=== PATIENT | female | born 1985 | race Two or more races ===

== ENCOUNTER 2024-03-17 15:10 | Observation (INO) | payer MEDICAID, SELFPAY ==
[2024-03-17 15:15] VITALS: BP 130/63; PULSE 95; RESP 16; RESP 96; TEMP 36.8; BMI 48.9
[2024-03-17 15:46] VITALS: BP 130/63; PULSE 95
--- NOTE | 2024-03-17 16:05 | XR_ITS ---
Examination: Complete OB ultrasound greater than 14 weeks Date and time of exam: March 17, 2024 1619 hours INDICATIONS: Vaginal bleeding beginning 2 days ago Findings: Viable intrauterine single fetus with single amniotic sac presentation cephalic Cardiac motion 137 BPM Placenta maternal right grade 3 Umbilical cord insertion 3 vessel seen Amniotic fluid index 14.8 cm Cervix ovaries obscured by bowel gas Composite estimated gestational age based on BPD, head circumference, abdominal circumference, femur length is 37 weeks 0 days Estimated weight 3118 g. Survey of intracranial anatomy, spinal anatomy, abdominal anatomy, four-chamber heart performed with no abnormalities identified. Impression: Viable intrauterine gestation cephalic presentation.
== END 2024-03-17 17:40 | disposition home or self-care (01) ==
PROVIDERS: Admitting Provider Obstetrics & Gynecology; Visit Provider Obstetrics & Gynecology
DX: O46.93 Antepartum hemorrhage, unspecified, third trimester (principal); Z3A.37 37 weeks gestation of pregnancy
CPT/HCPCS: 59025; 59899; 76805

== ENCOUNTER 2024-04-05 12:41 | Inpatient (IN) | payer MEDICAID, SELFPAY ==
[2024-04-05] VITALS (32 sets, daily range): BP systolic 104–172; BP diastolic 72–107; PULSE 74–92; RESP 13–100; TEMP 36.2–36.6; O2SAT 98–100; BMI 48.6
[2024-04-05] MEDS: LABETALOL 100 MG TABLET PO ×2 (13:43→14:08)
[2024-04-05 14:31] LABS: Basophils % (Auto) 0 % (0-2.5); Eosinophils # (Auto) 0.1 Thou/mm3 (0.0-0.5); Eosinophils % (Auto) 1 % (0-10); Hematocrit 38.1 % (36.0-46.0); Hemoglobin 12.4 g/dL (12.0-16.0); Immature Granulocytes % (Auto) 1 % (0-0); Immature Granulocytes Auto 0.05 Thou/mm3 (0.00-0.00); Lymphocytes # (Auto) 1.4 Thou/mm3 (1.0-4.8); Lymphocytes % (Auto) 13 % (10-50); Mean Corpuscular HGB Conc 32.5 g/dl (31.0-37.0); Mean Corpuscular Hemoglobin 27.7 pg (25.0-35.0); Mean Corpuscular Volume 85 fL (80-100); Monocytes # (Auto) 0.5 Thou/mm3 (0.0-0.8); Monocytes % (Auto) 5 % (0-12); Neutrophils % (Auto) 81 % (37-80); Nucleated Red Blood Cell % 0 /100 WBC (0); Platelet Count 240 Thou/mm3 (140-440); RDW Standard Deviation 49.1 fL (36.4-46.3); Red Blood Count 4.47 Miln/mm3 (4.00-5.20); White Blood Count 11.1 Thou/mm3 (3.6-11.0)
[2024-04-05 14:38] LABS: Bilirubin,Urine Negative (Negative); Blood,Urine Negative (Negative); Clarity,Urine Clear (Clear/Hazy); Collection Type, Urine Clean Catch; Color,Urine Lt-Yellow (Lt Yel-Yel); Glucose, Urine Negative (Negative); Ketones,Urine Negative (Negative); Leukocyte Esterase,Urine Negative (Negative); Nitrite,Urine Negative (Negative); Protein,Urine Negative (Neg - Trace); RBC,Urine 2 /hpf (0-3); Specific Gravity,Urine 1.012 (1.001-1.035); Squamous Epithelial Cell,Urine 1 /hpf (0-5); Urobilinogen,Urine Negative mg/dL (0.0-1.0); WBC,Urine 1 /hpf (0-5)
[2024-04-05 14:56] LABS: Alanine Aminotransferase 10 U/L (10-49); Albumin, Serum 3.9 gm/dL (3.5-5.0); Albumin/Globulin Ratio 1.4 (1.2-2.2); Alkaline Phosphatase 221 U/L (46-116); Anion Gap 8 (7-16); Aspartate Amino Transferase < 8 U/L (0-34); BUN/Creatinine Ratio 12 Ratio (12-20); Bilirubin,Total 0.4 mg/dL (0.3-1.2); Blood Urea Nitrogen 7 mg/dL (9-23); Calcium 9.1 mg/dL (8.3-10.6); Calcium (Corrected) 9.2 mg/dL (8.5-10.1); Carbon Dioxide 22.9 mMol/L (20.0-31.0); Chloride 106 mMol/L (98-107); Creatinine (Component) 0.6 mg/dL (0.6-1.3); Estimated Creatinine Clearance 187.4 mL/min (>60); Globulin 2.8 gm/dL (2.3-3.5); Glucose 74 mg/dL (74-106); LDH (Lactate Dehydrogenase) 181 U/L (120-246); Osmolality,Calculated 270 (275-295); Sodium 137 mMol/L (136-145); Total Protein 6.7 gm/dL (5.7-8.2); Uric Acid 5.1 mg/dL (3.1-7.8); eGFR > 60 See Note
[2024-04-05 15:07] LABS: INR 0.9 (0.9-1.3); Partial Thromboplastin Time 26.5 Seconds (22.0-36.0); Prothrombin Time 10.1 Seconds (9.0-12.2)
[2024-04-05 15:11] LABS: Fibrinogen 674 mg/dL (175-375)
[2024-04-05 16:06] LABS: Creatinine,Random Urine 49 mg/dL (30-125); Protein Total, Random Urine 15 mg/dL (1-14)
--- NOTE | 2024-04-05 16:49 | PD.LDHP ---
Documentation for date of: 04/05/24 OB Labor/Induct. HPI History of Present Illness Chief complaint: delayed follow up for elevated bp in clinic on 04/01 : 6 Para: 4 Term pregnancies: 4 pregnancies: 1 Living children: 4 History of Abortions: Spontaneous and Elective: 0 History of Vaginal deliveries: 1 History of sections: Yes History of : Yes KANDI: 04/14/24 Gestational Age (weeks): 38 Gestational Age (days): 5 Indication for induction: other History of present illness: Patient presents for follow up of elevated bp's noted in office on 04/01/24. She states she was scared that she would be delivered that day, so did not come to L&D at that time. She feels more ready to deliver today. She has not had headaches, vision changes or RUQ pain. Last ate chips at 0900 this morning. Forgot to take labetalol this morning. No ctx, no LOF, no vaginal bleeding. Feels normal movement. History of Present Dating criteria: based on 3rd trimester US only Adequate Care: No Ultrasounds: normal mid trimester US Narrative: complicated by: -Insufficient care (only a handful of visits) -Methamphetamine and tobacco use -Chronic hypertension (taking labetalol 200mg PO BID when she remembers) -Obesity, current BMI 48 -History of 4 prior sections and a at 24wk after PPROM with associated demise in 2017 -AMA -Chlamydia in current treated with azithromycin -Desires BTL, previously counseled in office and signed consent form at appropriate interval Labs Labs: Positive: Chlamydia and Negative: RPR, Hepatitis B and HIV Review of Systems Review of Systems Narrative Review of Systems: Review of Systems Systems Reviewed: All systems reviewed, normal except as documented Constitutional Constitutional: Denies body ache(s), Denies chills, Denies fever(s) and Denies headache(s) ENT Ears, Nose, Mouth, and Throat: Denies headache(s) and Denies vertigo Cardiovascular Cardiovascular: Denies chest pain, Denies palpitations, Denies dyspnea and Denies syncope Respiratory Respiratory: Denies cough, Denies dyspnea Gastrointestinal Gastrointestinal: Denies nausea and Denies vomiting Neurologic Neurologic: Denies convulsions, Denies headache(s), Denies other visual disturbances, Denies syncope and Denies vertigo Past Medical History Family History OTHER FAMILY HX: Diabetes Surgical History SURGICAL: Positive Section OTHER SURGICAL HX: section x 4 Social History SOCIAL: Tobacco and methamphetamine use. No ETOH. She endorses good social support. Past Medical History Comments PMH COMMENT: -Methamphetamine and tobacco use -Chronic hypertension (taking labetalol 200mg PO BID when she remembers) -Obesity, current BMI 48 -Chlamydia in current treated with azithromycin -Depression, anxiety, history of depression Meds Home Medications and Allergies Home Medications ?Medication ?Instructions ?Recorded ?Confirmed ?Type prenat.vits,petar,[id number] 1 tab PO QDAY 02/27/22 04/05/24 History Allergies Allergy/AdvReac Type Severity Reaction Status Date / Time No Known Allergies Allergy Verified 04/05/24 13:27 OB Exam Physical Exam Vital signs: Temp Pulse Resp BP 97.8 F 81 18 141/73 H 04/05/24 13:00 04/05/24 15:39 04/05/24 12:50 04/05/24 15:39 Narrative: General: well developed, well nourished, no acute distress, conversant Cardiac: normal heart rate Lungs: breathing without distress Abdomen: soft, obese, gravid, non-tender, no rebound or guarding Extremities: no pain with palpation of calves Detailed Labor and Delivery Exam Membranes: intact monitor accelerations: 15x15 monitor decelerations: None intermediate variability: Moderate (11-25) OB Results Labs 04/05/24 13:50 04/05/24 13:50 Labs: Short CBC 04/05/24 Range/Units 13:50 WBC 11.1 H (3.6-11.0) Thou/mm3 Hgb 12.4 (12.0-16.0) g/dL Hct 38.1 (36.0-46.0) % Plt Count 240 (140-440) Thou/mm3 BMP 04/05/24 13:50 Sodium 137 Potassium 4.0 Chloride 106 Carbon Dioxide 22.9 BUN 7 L Creatinine 0.6 Glucose 74 Calcium 9.1 Liver Function 04/05/24 Range/Units 13:50 Total Bilirubin 0.4 (0.3-1.2) mg/dL AST < 8 (0-34) U/L ALT 10 (10-49) U/L Alkaline Phosphatase 221 H (46-116) U/L Albumin 3.9 (3.5-5.0) gm/dL Urine 04/05/24 Range/Units 13:47 Urine Color Lt-Yellow (Lt Yel-Yel) Urine Clarity Clear (Clear/Hazy) Urine pH 7.0 (5.0-7.0) Ur Specific [place] 1.012 (1.001-1.035) Urine Protein Negative (Neg - Trace) Urine Glucose (UA) Negative (Negative) Impressions Impression: 03/17/24 Examination: Complete OB ultrasound greater than 14 weeks Date and time of exam: March 17, 2024 1619 hours INDICATIONS: Vaginal bleeding beginning 2 days ago Findings: Viable intrauterine single fetus with single amniotic sac presentation cephalic Cardiac motion 137 BPM Placenta maternal right grade 3 Umbilical cord insertion 3 vessel seen Amniotic fluid index 14.8 cm Cervix ovaries obscured by bowel gas Composite estimated gestational age based on BPD, head circumference, abdominal circumference, femur length is 37 weeks 0 days Estimated weight 3118 g. Survey of intracranial anatomy, spinal anatomy, abdominal anatomy, four-chamber heart performed with no abnormalities identified. Impression: Viable intrauterine gestation cephalic presentation. OB Assessment & Plan Assessment and Plan (1) Chronic hypertension affecting : Status: Acute Assessment and plan: Patient is a 38yo with SIUP at 38w5d with uncontrolled CHTN likely related to non-compliance (and methamphetamine use) but cannot rule out pre-eclampsia withOUT severe features since urine protein:creatinine is 0.3 with no baseline for comparison. First bp severe range followed by mild range bp's, benign exam. Reassuring assessment. PMhx/ complicated by: -Insufficient care (only a handful of visits) -Methamphetamine and tobacco use -Chronic hypertension (taking labetalol 200mg PO BID when she remembers) -Obesity, current BMI 48 -History of 4 prior sections and a at 24wk after PPROM with associated demise in 2017 -AMA -Chlamydia in current treated with azithromycin -Desires BTL, previously counseled in office and signed consent form at appropriate interval -Depression, anxiety, history of depression Plan: -Admit to L&D for RLTCS with BTL. Patient endorses today she is 100% sure she is done with childbearing. BTL consent form that was signed in office in November was obtained and reviewed. -Type and cross 2 units. Repeat urine chlamydia testing and Utox -NPO -Counseled/consented re: section with bilateral tubal ligation via salpingectomy. Discussed all r/b/a to include: bleeding (possible need for blood transfusion), infection (subcutaneous, deeper layers or uterine with possible need for prolonged admission or re-admission for IV antibiotics, I&D with wound packing, etc), injury to nearby structures such as bladder, bowel, ureters, blood vessels, nerves with possible need for re-operation, pain, injury to baby, hysterectomy, DVT/PE, . For bilateral tubal ligation: possibility of failure with either resultant ectopic vs intra-uterine . Answered all questions to patient's satisfaction. -IV abx ppx: Ancef 3g IV x1 -Nursing and anesthesia team aware of plan for section with BTL. Will proceed to OR when team is ready (2) Previous section: Status: Acute (3) Obesity affecting in third trimester: Status: Acute (4) Drug use complicating in third trimester: Status: Acute (5) Tobacco smoking affecting : Status: Acute (6) Insufficient antepartum care: Status: Acute (7) Chlamydia infection affecting : Status: Acute (8) Tubal ligation evaluation: Status: Acute (9) History of depression: Status: Acute (3) Obesity affecting in third trimester Qualifiers: Obesity type affecting : other obesity due to excess calories Qualified Code(s): O99.213 - Obesity complicating , third trimester; E66.09 - Other obesity due to excess calories (5) Tobacco smoking affecting Qualifiers: Trimester: third trimester Qualified Code(s): O99.333 - Smoking (tobacco) complicating , third trimester (7) Chlamydia infection affecting Qualifiers: Trimester: third trimester Qualified Code(s): O98.813 - Other maternal infectious and parasitic diseases complicating , third trimester; A74.9 - Chlamydial infection, unspecified
[2024-04-05 18:01] LABS: Amphetamine/Metham Scrn,Ur OB Negative (Negative); Benzoylecgonine Screen, Ur OB Negative (Negative); Opiate Screen,Urine OB Negative (Negative); THC Screen,Urine OB Negative (Negative)
[2024-04-05] MEDS: FAMOTIDINE INJ 10 MG/ML VIAL 2 ML 20 MG IV (19:02)
[2024-04-05] MEDS: ceFAZolin/D5W 1 GM IVPB 1 GM/50 ML BAG IV (19:02)
[2024-04-05] MEDS: CITRIC ACID/SODIUM CITR 15 ML UDC (BICITRA) 30 ML PO (19:02)
[2024-04-05] MEDS: ceFAZolin/D5W 2 GM IV 2 GM/100 ML BAG IV (19:02)
--- NOTE | 2024-04-05 21:22 | ESOP_ITS ---
Operative Note - PHOTOGRAPHER MODEL Procedure Date of procedure: 04/05/24 Procedure Performed: Repeat low transverse section with bilateral tubal ligation via salpingectomy Indication: Agatha is a 38yo with SIUP at 38w5d with uncontrolled CHTN likely related to non-compliance (and methamphetamine use) but cannot rule out pre-eclampsia withOUT severe features since urine protein:creatinine is 0.3 with no baseline for comparison. Pre-Op diagnosis: -SIUP at 38w5d with uncontrolled CHTN, cannot rule out pre-eclampsia withOUT severe features -History of 4 prior sections and a at 24wk after PPROM with associated demise in 2017 -Satisfied parity desiring permanent sterilization- previously counseled in office and signed consent form at appropriate interval -Insufficient care (only a handful of visits) -Methamphetamine and tobacco use -Obesity, current BMI 48 -AMA -Chlamydia in current treated with azithromycin -Depression, anxiety, history of depression Post-Op diagnosis: -SIUP at 38w5d with uncontrolled CHTN, cannot rule out pre-eclampsia withOUT severe features -History of 4 prior sections and a at 24wk after PPROM with associated demise in 2017 -Satisfied parity desiring permanent sterilization- previously counseled in office and signed consent form at appropriate interval -Insufficient care (only a handful of visits) -Methamphetamine and tobacco use -Obesity, current BMI 48 -AMA -Chlamydia in current treated with azithromycin -Depression, anxiety, history of depression Anesthesia type: Spinal Procedure description: After obtaining informed consent, the patient was taken to the operating room. There was reassuring heart rate tracing prior. Spinal anesthesia was administered. A parker catheter was placed and bilateral sequential compression devices were placed. She was then prepped and draped in the normal sterile fashion in the dorsal supine position with left lateral tilt. A timeout was performed to confirm patient name, date of , procedure and indication. The team was in agreement. Spinal anesthesia was found to be adequate using an Allis clamp. Anceph 3g IV x1 were given for prophylaxis. Scalpel was used to create an ellipse around the prior Pfannenstiel skin cicatrix and then excise just below it since it was dense and tacked down on the right side. Cicatrix removed and sent to pathology. Bovie cautery was then used to carry the incision down through to the underlying layer of fascia (there was dense adhesion in the subcutaneous layer). Care was taken to cauterize any areas of bleeding and maintain hemostasis during the dissection. The fascia was incised in the midine and the incision was extended laterally with the Duran scissors. The superior and inferior aspects of the fascial incision were then grasped with the Kyle clamps, elevated and the underlying rectus muscles were dissected off bluntly and sharply. The peritoneum was entered digitally and the rectus muscles were then in the midline. The omentum was adhered to the anterior abdominal wall, so care was taken to move the omentum as lateral to the peritoneal opening as possible. The peritoneal incision was then extended superiorly and inferiorly with good visualization of the bladder. An Ronald retractor was placed and the vesicouterine peritoneum was then identified, grasped with the pickups, and entered sharply with the Metzenbaum scissors. The incision was extended laterally and the bladder flap created digitally. The lower uterine segment was scored in a transverse fashion with the scalpel keeping well above the adhered bladder. The uterus was then entered bluntly and the incision was extended with traction with lightly tinged meconium amniotic fluid noted. The infant's head was elevated to the level of the incision. Fundal pressure was applied, but this did not result in delivery of the head so I called for a vacuum to assist with delivery. A Mityvac device was placed as posterior on the head as possible and RN pumped up the vacuum- I pulled before it was in the green zone and it popped off easily. Once pumped up to the green zone there was one more pop off, so I called for a stool to assist the INSOLE FILLER with fundal pressure. As the vacuum was being pumped up again, with increased fundal pressure from both the INSOLE FILLER and I, the 's head delivered even before the vacuum could be pulled on. Suction was immediately reduced and Mityvac removed from the field. The head was delivered atraumatically in the OT position. The anterior shoulder, posterior shoulder and corpus were delivered without difficulty. The nose and mouth were suctioned with bulb suction and cord was clamped x2 and cut. Infant was vigorous. The infant was handed off to the awaiting nursing team. Cord blood obtained for typing. The placenta was then removed manually and a lap sponge was used to clean out any residual membranes within the uterine cavity- there was already excellent tone. Ring forcep was used to open the cervix. The uterus was left in situ for repair of hysterotomy. The uterine incision was repaired with 0-vicryl suture in a running locking fashion. Two figure of 8's using O-vicryl were placed along the left lateral aspect of the incision line for total hemostasis. In addition to standard IV pitocin, patient received TXA 1g IV x1. Excellent uterine tone was noted throughout. The uterus was then exteriorized to perform the bilateral tubal ligation. The Enseal Tissue Sealer device was used according to dater assembler instructions to seal and excise closely underlying the right fallopian tube, excising it c ompletely away from the uterus at the proximal end. On the left side, the Enseal Tissue Sealer was used to excise only a 4cm portion on the proximal aspect since the fimbriated end could not be delineated from the contiguous scar tissue/retroperitonealization involving the left ovary and a loop of bowel. Care was taken to ensure that fallopian tube was distinguished from the left round ligament- the left fallopian tube was symmetric with the right fallopian tube and the engorged vessels were underlying it just as they were underlying the right fallopian tube. Right fallopian tube and left portion of fallopian tube were sent to pathology. The uterus was returned to the abdomen. The gutters were cleared of all clot. The areas from salpingectomy were noted to still be hemostatic, well sealed. Ronald retractor was removed. The rectus muscles were inspected and small areas of oozing were cauterized. The fascia was reapproximated with 0-Vicryl suture in a running fashion. The subcutaneous tissue was then copiously irrigated. At that point BECKI Arreguin reapproximated Lei's fascia using 3-0 vicryl suture in a running fashion. She then sutured the skin with 4-0 monocryl suture in runn ing subcuticular fashion. The incision was cleaned with a wet lap and dried with a dry lap. Arwarosvt-bcvohipqdni-meii bandage was applied overlying the incision and activated according to dater assembler instructions. Fundus was firm at the umbilicus. Sponge, lap and needle counts were correct x2. The procedure was without complications and the patient tolerated the procedure well. She was taken to recover further on Labor and Delivery, in stable condition. Fluids: crystalloid Fluid amount (mL): 1,500 Urine output (mL): 200 (clear yellow urine) Specimen: right tube and other (portion of left fallopian tube. cicatrix. ) Estimated blood loss (ml): 600 Findings: Dense scarring in subcutaneous layers. Omentum adhesed to anterior abdominal wall. Bladder adhesed up onto uterus. Normal appearing right fallopian tube and ovary. The left fallopian tube did not have a distinguishable fimbriated end as the ovary and tube were retro-peritonealized with adhesion that involved the bowel near where the fimbriated end of the tube was assumed to be. Uterus otherwise normal in appearance other than thin lower uterine segment related to prior cesareans. Male infant in OT presentation, apgars 8/9, weight 3820g, time of 2001 on 04/05/24. Vacuum-assisted delivery. Complications: none Surgical staff Operation Date: 04/05/24 19:45 Case Staff ADULT PAROLE OFFICER: Miguelito Camacho RNprocess control board operator: Kallie Ernandez Diagnosis Discharge Diagnosis (1) Previous section: Status: Acute (2) Chronic hypertension affecting : Status: Acute (3) Obesity affecting in third trimester: Status: Acute (4) Drug use complicating in third trimester: Status: Acute (5) Tobacco smoking affecting : Status: Acute (6) Insufficient antepartum care: Status: Acute (7) Chlamydia infection affecting : Status: Acute (8) Tubal ligation evaluation: Status: Acute (9) History of depression: Status: Acute Problem List Completed Was Problem List Reviewed/Reconciled?: Yes (3) Obesity affecting in third trimester Qualifiers: Obesity type affecting : other obesity due to excess calories Qualified Code(s): O99.213 - Obesity complicating , third trimester; E66.09 - Other obesity due to excess calories (5) Tobacco smoking affecting Qualifiers: Trimester: third trimester Qualified Code(s): O99.333 - Smoking (tobacco) complicating , third trimester (7) Chlamydia infection affecting Qualifiers: Trimester: third trimester Qualified Code(s): O98.813 - Other maternal infectious and parasitic diseases complicating , third trimester; A74.9 - Chlamydial infection, unspecified
[2024-04-05] MEDS: OXYTOCIN in NS 20 units 20 UNIT/1,000 ML BAG 125 UNIT IV (21:52)
--- NOTE | 2024-04-05 21:56 | OBDSUM_ITS ---
Data ([facility]) Data Hx Section: Yes : 6 Para: 4 Term: 4 : 0 : 1 Delivery Data ([facility]) Labor Data ROM Date: 04/05/24 ROM Time: 19:59 Rupture Type: AROM Amniotic Fluid: Clear Delivery Data Labor Onset Stage 1 Date: 04/05/24 Labor Onset Stage 1 Time: 20:02 Labor Onset Stage 2 Date: 04/05/24 Labor Onset Stage 2 Time: 20:02 Delivery Date: 04/05/24 Delivery Time: 20:02 Placenta Delivery Date: 04/05/24 Placenta Delivery Time: 20:03 Delivered by: Jordyn Peterson Delivery nurse: Jennifer Ramirez Other staff at delivery: Nursery Nurse Other staff at delivery: Talya Kelley Delivery Method Delivery: Delivery Type: Repeat Anesthesia Type Primary Anesthesia: Spinal Placenta Placenta Delivery: Manual EBL Estimated blood loss (ml): 600 Additional Procedures repeat low transverse section with bilateral tubal ligation via salpingectomy. See operative report for further details. Complications Complications: none [place] Data ([facility]) [place] Data Gender: Male Weight Grams: 3870 1 Minute Total: 8 5 Minute Total: 9
[2024-04-05] MEDS: ACETAMINOPHEN IVPB 1,000 MG/100 ML VIAL 250 MG IV (22:05)
[2024-04-05] MEDS: LABETALOL 100 MG TABLET 200 MG PO (22:05)
[2024-04-05] MEDS: KETOROLAC INJ 30 MG/ML VIAL IVP (22:05)
[2024-04-06] VITALS (7 sets, daily range): BP systolic 106–139; BP diastolic 71–87; PULSE 81–97; RESP 17–21; TEMP 36.4–37.2; O2SAT 97–100
[2024-04-06] MEDS: KETOROLAC INJ 30 MG/ML VIAL IVP (04:03)
--- NOTE | 2024-04-06 04:13 | PC.NURSE ---
0408 Pt had removed SCD's due to being cold. RN educated on the need for SCD after a , pt agreed to have them replaced. Fan in room turned on.
[2024-04-06] MEDS: ACETAMINOPHEN IVPB 1,000 MG/100 ML VIAL 250 MG IV (06:01)
[2024-04-06 07:02] LABS: Basophils % (Auto) 0 % (0-2.5); Eosinophils # (Auto) 0.1 Thou/mm3 (0.0-0.5); Eosinophils % (Auto) 0 % (0-10); Hematocrit 32.4 % (36.0-46.0); Hemoglobin 10.6 g/dL (12.0-16.0); Immature Granulocytes % (Auto) 0 % (0-0); Immature Granulocytes Auto 0.04 Thou/mm3 (0.00-0.00); Lymphocytes # (Auto) 1.3 Thou/mm3 (1.0-4.8); Lymphocytes % (Auto) 11 % (10-50); Mean Corpuscular HGB Conc 32.7 g/dl (31.0-37.0); Mean Corpuscular Hemoglobin 28.2 pg (25.0-35.0); Mean Corpuscular Volume 86 fL (80-100); Monocytes # (Auto) 0.5 Thou/mm3 (0.0-0.8); Monocytes % (Auto) 4 % (0-12); Neutrophils # (Auto) 10.3 Thou/mm3 (1.8-7.7); Neutrophils % (Auto) 85 % (37-80); Nucleated Red Blood Cell % 0 /100 WBC (0); Platelet Count 186 Thou/mm3 (140-440); RDW Standard Deviation 49.4 fL (36.4-46.3); Red Blood Count 3.76 Miln/mm3 (4.00-5.20); White Blood Count 12.2 Thou/mm3 (3.6-11.0)
[2024-04-06 08:53] LABS: Syphilis Nonreactive (Nonreactive)
[2024-04-06 08:56] LABS: Chlamydia trachomatis PCR Positive (Not Detect); Neisseria Gonorrhoeae DNA PCR Negative (Not Detect); Trichomonas Positive (Negative)
[2024-04-06] MEDS: DOCUSATE SOD 100 MG CAPSULE PO (11:30)
[2024-04-06] MEDS: DOXYCYCLINE 100 MG TABLET PO ×2 (11:30→22:28)
[2024-04-06] MEDS: metroNIDAZOLE 250 MG TABLET 500 MG PO ×2 (11:30→22:28)
[2024-04-06] MEDS: LABETALOL 100 MG TABLET 200 MG PO ×2 (11:33→22:31)
--- NOTE | 2024-04-06 12:06 | PD.LDPPPRG ---
Subjective Subjective Interval history: Patient doing well overall. Pain is well controlled. She has stood at bedside with no lightheadedness/dizziness. Fernandez removed this morning, awaiting due to void. Tolerating regular diet without nausea/vomiting. Hasn't yet passed gas. No fevers/chills, no CP/SOB. Exam Vital Signs Temp Pulse Resp BP Pulse Ox O2 Del Method 97.9 F 81 17 139/84 H 97 Room Air 04/06/24 11:30 04/06/24 11:33 04/06/24 11:30 04/06/24 11:33 04/06/24 11:30 04/06/24 11:30 Narrative Exam General: well developed, well nourished, no acute distress, conversant Cardiac: normal heart rate Lungs: breathing without distress Abdomen: soft, post-gravid, obese non-tender, no rebound or guarding, pfannenstiel incision covered by dry/clean/intact prineo bandage. Incision well reapproximated. No erythema, drainage or induration. Fundus firm at u-2cm. Extremities: no pain with palpation of calves, trace edema of BLE Objective Labs 04/06/24 06:55 04/05/24 13:50 Labs: Laboratory Results - last 24 hr 04/05/24 04/05/24 04/05/24 13:47 13:50 15:42 WBC 11.1 H RBC 4.47 Hgb 12.4 Hct 38.1 MCV 85 MCH 27.7 MCHC 32.5 RDW Std Deviation 49.1 H Plt Count 240 Neut % (Auto) 81 H Lymph % (Auto) 13 [place] % (Auto) 5 Eos % (Auto) 1 Baso % (Auto) 0 Neut # (Auto) 9.0 H Lymph # (Auto) 1.4 [place] # (Auto) 0.5 Eos # (Auto) 0.1 Baso # (Auto) 0.0 Immature Gran # (Auto) 0.05 H Absolute Nucleated RBC 0.00 Immature Gran % 1 H Nucleated RBC % 0 PT 10.1 INR 0.9 APTT 26.5 Fibrinogen 674 H* Sodium 137 Potassium 4.0 Chloride 106 Carbon Dioxide 22.9 Anion Gap 8 BUN 7 L Creatinine 0.6 Estim Creat Clear Calc 187.4 eGFR > 60 BUN/Creatinine Ratio 12 Glucose 74 Calculated Osmolality 270 L Uric Acid 5.1 Calcium 9.1 Corrected Calcium 9.2 Total Bilirubin 0.4 AST < 8 ALT 10 Alkaline Phosphatase 221 H Lactate Dehydrogenase 181 Total Protein 6.7 Albumin 3.9 Globulin 2.8 Albumin/Globulin Ratio 1.4 Ur Collection Type Clean Catch Urine Color Lt-Yellow Urine Clarity Clear Urine pH 7.0 Ur Specific [place] 1.012 Urine Protein Negative Urine Glucose (UA) Negative Urine Ketones Negative Urine Blood Negative Urine Nitrite Negative Urine Bilirubin Negative Urine Urobilinogen (Auto) Negative Ur Leukocyte Esterase Negative Urine RBC 2 Urine WBC 1 Ur Squamous Epith Cells 1 Urine Bacteria None Ur Random Creatinine 49 U Random Total Protein 15 H Urine Opiates Screen U Amphetamin/Meth Scrn U Cocaine Metab Screen U Marijuana (THC) Screen Syphilis Serology Chlam trachomat DNA PCR Positive N.gonorrhoeae DNA (PCR) Negative Trichomonas DNA Probe Positive A Blood Type Antibody Screen Crossmatch Blood Bank Wristband ID 04/05/24 04/05/24 04/06/24 17:25 17:30 06:55 WBC 12.2 H RBC 3.76 L Hgb 10.6 L Hct 32.4 L MCV 86 MCH 28.2 MCHC 32.7 RDW Std Deviation 49.4 H Plt Count 186 D Neut % (Auto) 85 H Lymph % (Auto) 11 [place] % (Auto) 4 Eos % (Auto) 0 Baso % (Auto) 0 Neut # (Auto) 10.3 H Lymph # (Auto) 1.3 [place] # (Auto) 0.5 Eos # (Auto) 0.1 Baso # (Auto) 0.0 Immature Gran # (Auto) 0.04 H Absolute Nucleated RBC 0.00 Immature Gran % 0 Nucleated RBC % 0 PT INR APTT Fibrinogen Sodium Potassium Chloride Carbon Dioxide Anion Gap BUN Creatinine Estim Creat Clear Calc eGFR BUN/Creatinine Ratio Glucose Calculated Osmolality Uric Acid Calcium Corrected Calcium Total Bilirubin AST ALT Alkaline Phosphatase Lactate Dehydrogenase Total Protein Albumin Globulin Albumin/Globulin Ratio Ur Collection Type Urine Color Urine Clarity Urine pH Ur Specific [place] Urine Protein Urine Glucose (UA) Urine Ketones Urine Blood Urine Nitrite Urine Bilirubin Urine Urobilinogen (Auto) Ur Leukocyte Esterase Urine RBC Urine WBC Ur Squamous Epith Cells Urine Bacteria Ur Random Creatinine U Random Total Protein Urine Opiates Screen Negative U Amphetamin/Meth Scrn Negative U Cocaine Metab Screen Negative U Marijuana (THC) Screen Negative Syphilis Serology Nonreactive Chlam trachomat DNA PCR N.gonorrhoeae DNA (PCR) Trichomonas DNA Probe Blood Type O Positive Antibody Screen NEGATIVE Crossmatch See Detail Blood Bank Wristband ID Yes Assessment & Plan Problem List (1) Previous section: Status: Acute Assessment and plan: Agatha is a 38yo [id number] doing well on POD 1 s/p uncomplicated RLTCS with bilateral tubal ligation via salpingectomy at 38w5d indicated for 4 prior sections in the setting of uncontrolled CHTN likely related to non-compliance (and methamphetamine use) with inability to rule out pre-eclampsia withOUT severe features since urine protein:creatinine was 0.3 with no baseline for comparison. Vitals wnl, benign exam. Hemodynamically stable with no evidence of infection. Appropriate change in H/H (10.6 from 12.4). otherwise complicated by: -SIUP at 38w5d with uncontrolled CHTN, cannot rule out pre-eclampsia withOUT severe features -History of 4 prior sections and a at 24wk after PPROM with associated demise in 2017 -Satisfied parity desiring permanent sterilization- previously counseled in office and signed consent form at appropriate interval -Insufficient care (only a handful of visits) -Methamphetamine and tobacco use -Obesity, current BMI 48 -AMA -Chlamydia in current treated with azithromycin. Test of cure on admission is POSITIVE for chlamydia and trichomonas. Patient endorses took azithro in and not sexually active with partner since that time -Depression, anxiety, history of depression Plan: -Continue routine /post-op care -Rx doxycycline 100mg PO BID and flagyl 500mg PO BID (will need to continue for full 7 day course). I discussed positive chlamydia and trichomonas testing with patient and need to complete full week of abx. Discussed not to have intercourse with her partner until he is fully treated and she voiced her understanding. -Awaiting due to void -Regular diet -continue current pain management regimen -Encourage ambulation and use of IS -Anticipate discharge home tomorrow if meeting all milestones (2) Chronic hypertension affecting : Status: Acute (3) Obesity affecting in third trimester: Status: Acute (4) Drug use complicating in third trimester: Status: Acute (5) Tobacco smoking affecting : Status: Acute (6) Insufficient antepartum care: Status: Acute (7) Chlamydia infection affecting : Status: Acute (8) Tubal ligation evaluation: Status: Acute (9) History of depression: Status: Acute (10) Trichomonas vaginalis (TV) infection: Status: Acute Time Spent With Patient Time: Total time spent is greater than 50% in coordination of care (as documented) at patient's floor/unit and/or counseling patient:
[2024-04-06] MEDS: oxyCODONE HCL 5 MG IR TAB PO (19:58)
--- NOTE | 2024-04-06 22:52 | PC.NURSE ---
04/06/241954: Called MD Peterson regarding plan of care for pain medications. stated ok to give oxycodone IR 10mg, 5mg PO PRN for pain.
[2024-04-07] MEDS: IBUPROFEN TAB 400 MG TABLET 800 MG PO ×2 (00:12→08:57)
[2024-04-07] MEDS: SIMETHICONE 80 MG CHEW PO (00:14)
[2024-04-07] MEDS: Milk Of Magnesia Susp 30 ML UDC PO (00:14)
[2024-04-07 03:43] VITALS: BP 106/71; PULSE 85; RESP 19; TEMP 36.4; O2SAT 97
--- NOTE | 2024-04-07 06:47 | ESDS_ITS ---
DS: Providers Provider Date of admission: 04/05/24 12:41 Primary care physician: Physician No Primary/Family Admitting Provider: Jordyn Peterson MD Attending Provider on Admission: Jordyn Peterson MD Attending Provider on DC: Jordyn Peterson MD Discharging Provider: Jordyn Peterson MD DS: Diagnosis Discharge Diagnosis (1) Previous section: Status: Acute (2) Chronic hypertension affecting : Status: Acute (3) Obesity affecting in third trimester: Status: Acute (4) Drug use complicating in third trimester: Status: Acute (5) Tobacco smoking affecting : Status: Acute (6) Insufficient antepartum care: Status: Acute (7) Chlamydia infection affecting : Status: Acute (8) Tubal ligation evaluation: Status: Acute (9) History of depression: Status: Acute (10) Trichomonas vaginalis (TV) infection: Status: Acute Problem List Completed Was Problem List Reviewed/Reconciled?: Yes Summary/Hosp Course Brief History: Agatha is a 38yo [id number] doing well on POD 2 s/p uncomplicated RLTCS with bilateral tubal ligation via salpingectomy at 38w5d indicated for 4 prior sections in the setting of uncontrolled CHTN likely related to non- compliance (and methamphetamine use) with inability to rule out pre-eclampsia withOUT severe features since urine protein:creatinine was 0.3 with no baseline for comparison. Vitals wnl, benign exam. Hemodynamically stable with no evidence of infection. Appropriate change in H/H (10.6 from 12.4). She has had a benign post-op course. otherwise complicated by: -SIUP at 38w5d with uncontrolled CHTN, cannot rule out pre-eclampsia withOUT severe features. Will continue labetalol 100mg PO BID. -History of 4 prior sections and a at 24wk after PPROM with associated demise in 2017 -Satisfied parity desiring permanent sterilization- previously counseled in office and signed consent form at appropriate interval -Insufficient care (only a handful of visits) -Methamphetamine and tobacco use -Obesity, current BMI 48 -AMA -Chlamydia in current treated with azithromycin. Test of cure on admission is POSITIVE for chlamydia and trichomonas. Patient endorses took azithro in and not sexually active with partner since that time. Rx flagyl 500mg PO BID x 1 week and doxycycline 100mg PO BID x 1 week. -Depression, anxiety, history of depression Peripartum Data Procedures: Procedures Operation Date: 04/05/24 19:45 Actual Procedure Side Surgeon p w/tubal OB Jordyn Peterson MD Status at Discharge Functional status at discharge: independent ambulation Overall status at discharge: patient is back to baseline Time Spent with Patient Time attestation: Total time spent providing and/or coordinating discharge services: Exam Vital Signs Temp Pulse Resp BP Pulse Ox O2 Del Method 97.5 F 85 19 106/71 97 Room Air 04/07/24 03:43 04/07/24 03:43 04/07/24 03:43 04/07/24 03:43 04/07/24 03:43 04/07/24 03:43 Narrative Exam General: well developed, well nourished, no acute distress, conversant Cardiac: normal heart rate Lungs: breathing without distress Abdomen: soft, post-gravid, obese, non-tender, no rebound or guarding, pfannenstiel incision covered by dry/clean/intact prineo bandage. Incision well reapproximated. No erythema, drainage or induration. Fundus firm at u-2cm. Extremities: no pain with palpation of calves, trace edema of BLE Discharge Plan Plan Patient Disposition: HOME (Self Care) Prescriptions/Referrals Prescriptions/Med Rec: New hydrocodone-acetaminophen 5-325 mg Tablet 1 tab PO Q4HR MDD 4 tablets PRN (Reason: Patient rated pain 7 to 8) 10 Days Qty: 12 0RF doxycycline hyclate 100 mg Tablet 100 mg PO BID 6 Days Qty: 12 0RF ibuprofen 800 mg tablet 800 mg PO Q8HR PRN (Reason: Pain Scale 4-6 (Moderate) 10 Days Qty: 30 0RF labetalol 200 mg tablet 200 mg PO BID 30 Days Qty: 60 0RF polyethylene glycol 3350 17 gram powder in packet 17 g PO QDAY Qty: 14 0RF metronidazole 500 mg tablet 500 mg PO BID 6 Days Qty: 12 0RF Continued prenat.vits,petar,[id number] Tablet 1 tab PO QDAY Discontinued nifedipine [Procardia XL] 60 mg tablet extended release 24hr 60 mg PO BID Qty: 30 4RF acetaminophen-codeine 300-15 mg tablet 1 tab PO Q8H PRN (Reason: pain) Qty: 14 0RF ibuprofen 600 mg tablet 600 mg PO TID Qty: 30 0RF Referrals: No Primary/Family,Physician [Primary Care Provider] - Patient/Caregiver Discharge Instructions Discharge Activity: activity as tolerated Other Discharge Activity Instructions:: vaginal rest and no heavy lifting more than 10 pounds for 6 weeks. Keep incision clean and dry, shower and pat dry well after, do not submerge. No driving while taking narcotic. Take full course of both antibiotics to fully treat sexually transmitted infections. Other Discharge Diet Instructions: Regular Education Materials: Chlamydia, Vaginal Infection: Trichomoniasis, C Section Dc Print Language: Spanish Stand Alone Forms: [employer] Award Info., Patient Portal Info Letter, Work/Release Restrictions Discharge Order Discharge Orders: Discharge (Routine); Ordered 04/07/24 Ordered By: Jordyn Peterson Planned Discharge Date 04/07/24 (3) Obesity affecting in third trimester Qualifiers: Obesity type affecting : other obesity due to excess calories Qualified Code(s): O99.213 - Obesity complicating , third trimester; E66.09 - Other obesity due to excess calories (5) Tobacco smoking affecting Qualifiers: Trimester: third trimester Qualified Code(s): O99.333 - Smoking (tobacco) complicating , third trimester (7) Chlamydia infection affecting Qualifiers: Trimester: third trimester Qualified Code(s): O98.813 - Other maternal infectious and parasitic diseases complicating , third trimester; A74.9 - Chlamydial infection, unspecified
[2024-04-07 08:50] VITALS: BP 145/84; PULSE 91; RESP 17; TEMP 36.6; O2SAT 97
[2024-04-07] MEDS: DOCUSATE SOD 100 MG CAPSULE PO (08:57)
[2024-04-07 08:58] VITALS: BP 145/84; PULSE 91
[2024-04-07] MEDS: LABETALOL 100 MG TABLET 200 MG PO (08:58)
[2024-04-07] MEDS: metroNIDAZOLE 250 MG TABLET 500 MG PO (08:59)
[2024-04-07] MEDS: DOXYCYCLINE 100 MG TABLET PO (08:59)
--- NOTE | 2024-04-07 13:36 | PC.NURSE ---
voice message for SW [id number] (2nd time)
--- NOTE | 2024-04-07 15:31 | PC.NURSE ---
according to CORNELIO Berry, patient has necessary resources for safe discharge.
--- NOTE | 2024-04-07 16:55 | PC.SS ---
SUPERINTENDENT MEASUREMENT introduced herself, role in the agency, reason for phone call, and discussed limits of confidentiality. SUPERINTENDENT MEASUREMENT spoke to pt. Pt friend, Kelly was present and pt gave verbal authorization for friend Kelly, to be present. Pt was calm and reported feeling good. Pt has applied to WIC and EBT. Pt working on getting reestablished with [facility] and knows how to access other services. Demographic information was verified with Agatha and matches on face sheet. Agatha lives in a one room apartment with her other 4 children ages 18, 9,4,2, and . Agatha does not have a telephone and can be reached by calling [employer], . Currently her other children are staying with her mother while Agatha is in hospital. Agatha confirmed having running water and electricity; Agatha is part of the [facility] program with [facility] and stated they are working on getting her additional housing with more rooms. Pt stated father of the baby, Abdullahi, is involved. Pt was referred for meth at the beginning of but no other positive tests; baby and pt did not test positive at time of assessment. Agatha stated she has not used any substance since 2022 when she had a miscarriage and lost her last child and unsure why she was positive at beginning of . Currently Agtaha and baby tested negative for substances. ?Agatha stated she has not used alcohol at the same time as the tragedy of losing the child made her stop substances altogether. Agatha confirmed was confirmed at month 2 and she tried to make all appointments but was unable to make some due to transportation. Agatha stated she made sure to make all of the appointments at the end of her . Pt reported having had CPS involvement in 2016 where child was taken away and adopted by FOB family. Currently Agatha stated she does not have CWS case open. Upon discharge, a Kelly will transport pt and baby home. Pt seemed appropriate with baby. SS feels baby is safe to discharge home with mom when medically cleared. Pt is cleared for discharge from .
--- NOTE | 2024-04-07 17:38 | PC.SS ---
Late entry: SS spoke with Leslee, registration to change next of kin Fallongisele Young, ; Ellie Santillan contact number [phone]; angela, Agatha, telephone number [phone]
== END 2024-04-07 16:55 | disposition home or self-care (01) | DRG 539 ==
LOC: S4SX 17:19 → S4NX 20:28 → S4SX 04-25 13:41
PROVIDERS: Admitting Provider Obstetrics & Gynecology; Visit Provider Obstetrics & Gynecology
PROC: 0UL70ZZ Occlusion of Bilateral Fallopian Tubes, Open Approach (ICD-10-PCS; CPT 59514; principal; 2024-04-05 19:30)
DX: O34.211 Maternal care for low transverse scar from previous cesarean delivery (principal); O10.92 Unspecified pre-existing hypertension complicating childbirth; Z37.0 Single live birth; Z3A.38 38 weeks gestation of pregnancy; O99.334 Smoking (tobacco) complicating childbirth; F17.200 Nicotine dependence, unspecified, uncomplicated; O98.32 Other infections with a predominantly sexual mode of transmission complicating childbirth; A74.9 Chlamydial infection, unspecified; A59.01 Trichomonal vulvovaginitis; O99.214 Obesity complicating childbirth; E66.09 Other obesity due to excess calories; O99.324 Drug use complicating childbirth; F15.90 Other stimulant use, unspecified, uncomplicated; O77.0 Labor and delivery complicated by meconium in amniotic fluid; O99.344 Other mental disorders complicating childbirth; F32.A Depression, unspecified; F41.9 Anxiety disorder, unspecified; Z30.2 Encounter for sterilization; Z91.199 Patient's noncompliance with other medical treatment and regimen due to unspecified reason
CPT/HCPCS: 36415; 59025; 59899; 80053; 80307; 81001; 82570; 83615; 84156; 84550; 85025; 85384; 85610; 85730; 86780; 86850; 86900; 86901; 86923; 87491; 87591; 87661; A4649; J0131; J0689; J1885; J2250; J2274; J2371; J2590; J3490; A9270; J2270